=== PATIENT | male | born 1990 | race African-American/Black ===

== ENCOUNTER 2016-11-18 11:13 | Emergency (ER) | payer SELFPAY ==
[2016-11-18 11:27] VITALS: BP 143/92; PULSE 76; TEMP 98.4; BMI 33.2
[2016-11-18] MEDS ORDERED: IBUPROFEN 600 MG TABLET (FP) PO ONE ×2 (13:14→13:17)
--- NOTE | 2016-11-18 13:23 | PDOC ---
History of Present Illness - General Chief Complaint: Bite Stated Complaint: STUNG BY BEE Time Seen by Provider: 11/18/16 12:16 History Source: Patient Exam Limitations: No Limitations - History of Present Illness Initial Comments: 11/18/16 13:14 26 yr male with bee sting to right forearm about 2hrs ago. no history of bee sting in the past. no sob, pt has redness to the arm. Timing/Duration: reports: this morning Severity: Yes: mild Location: reports: extremities (right upper arm ) Past History - Past Medical History Allergies/Adverse Reactions: Allergies Allergy/AdvReac Type Severity Reaction Status Date / Time No Known Allergies Allergy Verified 11/18/16 11:23 Home Medications: Ambulatory Orders NK [No Known Home Medication] 11/18/16 Other medical history: DENIES - Immunization History Immunization Up to Date: Yes - Psycho/Social/Smoking Cessation Hx Suicidal Ideation: No Smoking History: Current every day smoker Number of Cigarettes Smoked Daily: 1 Information on smoking cessation initiated: No Hx Alcohol Use: Yes (OCCASIONALLY) Drug/Substance Use Hx: No Substance Use Type: Alcohol Review of Systems - Review of Systems Able to Perform ROS?: Yes Is the patient limited Yakut proficient: No *Physical Exam - Vital Signs Last Vital Signs Temp Pulse Resp BP Pulse Ox 98.4 F 76 16 143/92 97 11/18/16 11:24 11/18/16 11:24 11/18/16 11:24 11/18/16 11:24 11/18/16 11:24 - Physical Exam General Appearance: Yes: Nourished, Appropriately Dressed HEENT: positive: EOMI, EMILIA, Pharynx Normal Neck: positive: Supple Respiratory/Chest: positive: Lungs Clear, Normal Breath Sounds Cardiovascular: positive: Regular Rhythm, Regular Rate Extremity: positive: Normal Capillary Refill, Normal Inspection, Normal Range of Motion Integumentary: positive: Normal Color, Dry, Warm, Swelling (right midforearm with reddedend swollen area approximately 2cm , no stinger pal[place] ) Neurologic: positive: Fully Oriented, Alert, Normal Mood/Affect, Normal Response , Motor Strength 5/5 Medical Decision Making - Medical Decision Making 11/18/16 13:26 cc: bee sting to right arm ice placed on arrival pt has no resp distress or any resp complaints will give motrin pt has been obsereved in ER for 2 hrs the swelling has significantly decreased dc inst given *DC/Admit/Observation/Transfer Diagnosis at time of Disposition: Bee sting Qualifiers: Encounter type: initial encounter Injury intent: accidental or unintentional Qualified Code(s): T63.441A - Toxic effect of venom of bees, accidental ( unintentional), initial encounter - Discharge Dispostion Disposition: HOME Condition at time of disposition: Good - Patient Instructions Additional Instructions: apply ice every 2hrs for 15-20 minutes for the next day take motrin 600mg every 6hrs for pain you can apply a topical anti itch cream such as benadryl if you need
== END 2016-11-18 13:25 | disposition home or self-care (01) ==
LOC: JERFT 11:13
DX: T63.441A Toxic effect of venom of bees, accidental (unintentional), initial encounter (principal); Y92.89 Other specified places as the place of occurrence of the external cause
CPT/HCPCS: 99281-25